=== PATIENT | female | born 1990 | race American Indian/Alaskan Native ===

== ENCOUNTER 2025-02-12 12:44 | Emergency (ER) | payer MEDICAID ==
[2025-02-12] MEDS: Ondansetron 4 MG Tab.DIS PO ONE (13:31)
[2025-02-12] MEDS: Buprenorphine/Naloxone 8-2 MG Tab.SL SL ONE (14:07)
[2025-02-12] MEDS: Buprenorphine/Naloxone 2-0.5 MG Tab.SL SL ONE (14:07)
== END 2025-02-12 14:25 ==
LOC: JP.ED 12:44
DX: F11.23 Opioid dependence with withdrawal (principal); Z51.81 Encounter for therapeutic drug level monitoring; F17.210 Nicotine dependence, cigarettes, uncomplicated; Z79.899 Other long term (current) drug therapy; Z86.16 Personal history of COVID-19
CPT/HCPCS: 99284; A9270; J0574; Q0162